=== PATIENT | female | born 2000 | race Caucasian/White ===

== ENCOUNTER 2019-11-29 10:09 | Outpatient (CLI) | payer MEDICAID ==
--- NOTE | 2019-11-29 11:08 | Non Stress Test Report ---
Non Stress Test Datetime Report Generated by CPN: 11/29/2019 11:07 DEMOGRAPHIC Test Number: 1 EGA NST: 39.3 INDICATION Indication for Study (NST) Other: 39.3 weeks repeat NST MONITORING Monitor Explained: Monitor Explained; Test Explained; Patient Verbalized Understanding Time on Monitor: 11/29/2019 10:19 Time off Monitor: 11/29/2019 10:48 NST Duration: 29 NST INTERVENTIONS NST Interventions: PO Hydration Physician Notified NST: Dr. Larsen BABY A: [id number] BABY A Movement : Present Contraction Frequency : Irregular FHR Baseline : 120 Accelerations : 15X15 Decelerations : None Variability : Moderate 6-25bpm NST Review: Meets Criteria for Reactive NST NST Review and Verified By : TMartin,RN NST Results: Reactive NST REPORT Report Trigger: Send Report
== END 2019-11-29 10:58 | disposition home or self-care (01) ==
LOC: LC 10:09
PROVIDERS: ATTEND Student in an Organized Health Care Education/Training Program
DX: O47.1 False labor at or after 37 completed weeks of gestation (principal); Z3A.39 39 weeks gestation of pregnancy

== ENCOUNTER 2019-12-04 01:42 | Outpatient (CLI) | payer MEDICAID ==
[2019-12-04 02:21] LABS: APPEARANCE,URINE SLIGHTLY-CLOUDY; BILIRUBIN,URINE NEGATIVE (NEGATIVE); COLOR,URINE YELLOW; GLUCOSE, URINE NEGATIVE (NEGATIVE); KETONES,URINE NEGATIVE (NEGATIVE); LEUKOCYTE ESTERASE,URINE LARGE (NEGATIVE); NITRITE,URINE NEGATIVE (NEGATIVE); PROTEIN,URINE 30 mg/dL (NEGATIVE); URINE SPECIFIC GRAVITY 1.023; UROBILINOGEN,URINE NEGATIVE mg/dL (<2.0)
[2019-12-04 02:35] LABS: URINE AMPHETAMINES SCREEN NEGATIVE; URINE BARBITURATES SCREEN NEGATIVE; URINE BENZODIAZEPINES SCREEN NEGATIVE; URINE COCAINE SCREEN NEGATIVE; URINE MARIJUANA (THC) SCREEN NEGATIVE; URINE METHADONE SCREEN NEGATIVE; URINE PHENCYCLIDINE SCREEN NEGATIVE
[2019-12-04] MEDS ORDERED: HYDROXYZINE PAMOATE 50 MG CAPSULE PO ONE (03:32)
[2019-12-04] MEDS ORDERED: HYDROXYZINE PAMOATE 50 MG CAPSULE ONE (03:50)
--- NOTE | 2019-12-04 04:09 | Non Stress Test Report ---
Non Stress Test Datetime Report Generated by CPN: 12/04/2019 04:09 DEMOGRAPHIC EGA NST: 40.1 INDICATION Indication for Study (NST) Other: lc VITAL SIGNS Temperature - NST: 96.6 Pulse - NST: 98 RESP - NST: 17 NBPSYS NST: 124 NBPDIA NST: 72 URINE RESULTS Urine Protein, NST: Positive Urine Ketones - NST: Negative Urine Glucose - NST: Negative Urine Blood - NST: Negative MONITORING Monitor Explained: Monitor Explained; Test Explained; Patient Verbalized Understanding Time on Monitor: 12/04/2019 01:54 Time off Monitor: 12/04/2019 02:15 NST Duration: 21 NST INTERVENTIONS NST Interventions: PO Hydration; Reposition Patient Physician Notified NST: Dr Gabriel BABY A: [id number] BABY A Movement : Present Contraction Frequency : 3-6 FHR Baseline : 120 Accelerations : 15X15 Decelerations : None Variability : Moderate 6-25bpm NST Review: Meets Criteria for Reactive NST NST Review and Verified By : Josy Paredes, SRINIVASA NST Results: Reactive NST REPORT Report Trigger: Send Report
[2019-12-04] MEDS ORDERED: TRANEXAMIC ACID INJ/PF 1,000 MG/10 ML SDV IV PRN (19:39)
== END 2019-12-04 04:00 | disposition home or self-care (01) ==
LOC: LC 01:42
PROVIDERS: ATTEND Obstetrics & Gynecology
DX: O47.1 False labor at or after 37 completed weeks of gestation (principal); Z3A.40 40 weeks gestation of pregnancy
CPT/HCPCS: 59025; 81005; 80307; J3490

== ENCOUNTER 2019-12-04 09:39 | Inpatient (IN) | payer MEDICAID ==
[2019-12-04] MEDS ORDERED: OXYTOCIN 10 UNIT/ML VIAL ONE (10:11)
[2019-12-04] MEDS ORDERED: MISOPROSTOL 0.2 MG TABLET ONE (10:11)
[2019-12-04] MEDS ORDERED: OXYTOCIN/0.9 % SODIUM CHLORIDE 30 UNIT/500 ML RTUINJ ONE (10:12)
[2019-12-04] MEDS ORDERED: LIDOCAINE 1% INJ-PF (10 MG/ML) 30 ML SDV ONE (10:12)
[2019-12-04] MEDS ORDERED: PENICILLIN G-K 5 MILLION UNIT VIAL ONE ×2 (10:12→14:08)
[2019-12-04] MEDS ORDERED: PENICILLIN G POTASSIUM 5,000,000 UNIT in DEXTROSE 5%-WATER 100 ML IV ONE (10:15)
[2019-12-04 10:22] LABS: APPEARANCE,URINE CLOUDY; BILIRUBIN,URINE NEGATIVE (NEGATIVE); COLOR,URINE YELLOW; GLUCOSE, URINE NEGATIVE (NEGATIVE); KETONES,URINE 20 mg/dL (NEGATIVE); LEUKOCYTE ESTERASE,URINE MODERATE (NEGATIVE); NITRITE,URINE NEGATIVE (NEGATIVE); PROTEIN,URINE 30 mg/dL (NEGATIVE); URINE SPECIFIC GRAVITY 1.018; UROBILINOGEN,URINE NEGATIVE mg/dL (<2.0)
[2019-12-04] MEDS: RINGERS SOLUTION,LACTATED 1,000 ML IV PRN ×2 (10:25→17:46)
[2019-12-04 10:38] LABS: URINE AMPHETAMINES SCREEN NEGATIVE; URINE BARBITURATES SCREEN NEGATIVE; URINE BENZODIAZEPINES SCREEN NEGATIVE; URINE COCAINE SCREEN NEGATIVE; URINE MARIJUANA (THC) SCREEN NEGATIVE; URINE METHADONE SCREEN NEGATIVE; URINE PHENCYCLIDINE SCREEN NEGATIVE
[2019-12-04 10:54] LABS: ABSOLUTE LYMPHOCYTES (AUTO) 1.4 10^3/uL (0.5-4.7); ABSOLUTE MONOCYTES (AUTO) 0.7 10^3/uL (0.1-1.4); ABSOLUTE NEUT (AUTO) 14.9 10^3/uL (1.7-8.2); BASOPHILS % (AUTO) 0.2 % (0-2); HEMATOCRIT 37.5 % (36.0-47.0); HEMOGLOBIN 12.3 g/dL (12.0-15.5); LYMPHOCYTES % (AUTO) 8.1 % (13-45); MEAN CORPUSCULAR HEMOGLOBIN 28.3 pg (27.0-33.4); MEAN CORPUSCULAR HGB CONC 32.9 g/dL (32.0-36.0); MEAN CORPUSCULAR VOLUME 86 fl (80-97); MONOCYTES % (AUTO) 4.3 % (3-13); PLATELET COUNT 215 10^3/uL (150-450); RED BLOOD COUNT 4.36 10^6/uL (3.72-5.28); SEGMENTED NEUTROPHILS % (AUTO) 87.4 % (42-78); TOTAL CELLS COUNTED % (AUTO) 100 %; WHITE BLOOD COUNT 17.1 10^3/uL (4.0-10.5)
--- NOTE | 2019-12-04 13:19 | Admission Physical ---
Datetime Report Generated by CPN: 12/04/2019 13:18 CURRENT ADMISSION Chief Complaint: Uterine Contractions; Suspected Ruptured Membranes Indication for Induction: Not Applicable Admit Impression : Term, Intrauterine Admit Plan: Admit to Unit; Initiate Labor Protocol ALLERGIES Medication Allergies: No Medication Allergies: No Known Allergies (12/04/2019) Latex: No Latex Allergies Food Allergies: None Environmental Allergies: None OBSTETRICAL HISTORY EDC: 12/03/2019 00:00 : 1 Para: 0 Term: 0 SAB: 0 IAB: 0 Ectopic: 0 Livin Cesareans: 0 VBACs: 0 Multiple Births: 0 Gestational Diabetes: No Rh Sensitization: No Incompetent Cervix: No TY: No Infertility: No ART Treatment: No Uterine Anomaly: No IUGR: No Hx Previous C/S: No Macrosomia: No Hx Loss/Stillborn: No PIH: No Hx : No Placenta Previa/Abruption: No Depression/PP Depression: No PTL/PROM: No Post Hemorrhage: No Current Procedures: Ultrasound; NST Obstetrical History Comments: G1- Current SEE RECORDS Alcohol: No Marijuana : No Cocaine: No Other Illicit Drugs: No Cigarettes: Former Smoker. [id number] Cigarette Frequency: < 5 per day MEDICAL HISTORY Diabetes: No Blood Transfusion: No Pulmonary Disease (Asthma, TB): No Breast Disease: No Hypertension: No Auto Claims Adjuster Surgery: No Heart Disease: No Hosp/Surgery: No Autoimmune Disorder: No Anesthetic Complications: No Kidney Disease: No Abnormal Pap Smear: No Neuro/Epilepsy: No Psychiatric Disorders: No Other Medical Diseases: No Hepatitis/Liver Disease: No Significant Family History: No Varicosities/Phlebitis: No Trauma/Violence : No Thyroid Dysfunction: No INFECTIOUS HISTORY Gonorrhea: No Genital Herpes: No Chlamydia: No Tuberculosis: No Syphilis: No Hepatitis: No HIV/AIDS Exposure: No Rash or Viral Illness: No HPV: No PHYSICAL EXAM General: Normal Neurologic: Normal Heart: Normal Lungs: Normal Abdomen: Normal Extremities: Normal Vital Signs: Reviewed; Within Normal Limits VAGINAL EXAM Contraction Comments: 2-6 MEMBRANES Membranes: Ruptured Amniotic Fluid Color: Clear FETUS A EGA: 40.1 Monitoring: External US FHR Category: Category I Presentation: Vertex Admit Comment: 19yo G1 @ 40w1d into L_D with contractions since last night. Pt was here @ 0300 and was discharged with no cervical change. On return, Pt is now 8cm dilated and SROM @ 0900. Pt is A neg, RI, GBS positive. uncomplicated, transfered in from [facility] @ 19wga. Dr. Rosado is the OB bronc buster today and aware of admission and pt status. First dose of PCN given on admission, pt resting comfortably, plan is delivery after 2nd dose of PCN earlier prn PLANS FOR LABOR AND DELIVERY Labor and Delivery: None Pain Management: Epidural Feeding Preference: Formula Benefit of Breast Feed Discussed: Yes Circumcision: No INFORMED CONSENT Assignment: Daiana Rosado MD Signature: with User ID: Luis A : with User ID: Luis [email or web address]
--- NOTE | 2019-12-04 14:11 | L&D Progress Notes ---
PROGRESS NOTES Datetime Report Generated by CPN: 12/04/2019 14:11 PROGRESS NOTE Impression: Normal Progression of Labor Procedures: Artificial ROM; Sterile Vag Exam Plan: Continue Present Management Informed Consent Obtained: Vaginal Delivery; Risks, Benefits and Alternatives Discussed Vital Signs : Reviewed; Within Normal Limits Comment: S: pt comfortable, breathing with contractions, denies any special requests for time of delivery, no concerns O: VSS, Cat I tracing, contractions and cervix as stated A: IUP @ 40w1d in labor progressing well AROM of forebag-moderate amount of clear fluid P: continue expectant management, anticipate delivery VAGINAL EXAM Contractions: 2-6 LAST VAGINAL EXAM-NURSING Nursing Exam Dilitation: 9.0 Nursing Exam Effacement: 100 Nursing Exam Station: 0 Nursing Exam Contractions: Pt kamryn feeling contraction. MEMBRANES Membranes: Ruptured Amniotic Fluid Color: Clear FETUS A Monitoring: External US FHR Category: Category I Presentation: Vertex SIGNATURE SIGNATURE: [id number] Assignment: aDiana Rosado MD Signature: with User ID: Luis A : with User ID: Luis A
[2019-12-04] MEDS: PENICILLIN G POTASSIUM 2,500,000 UNIT in DEXTROSE 5%-WATER 50 ML IV SCH ×2 (14:16→18:07)
[2019-12-04] MEDS ORDERED: OXYTOCIN/0.9 % SODIUM CHLORIDE 30 UNIT/500 ML RTUINJ IV PRN ×2 (15:18→19:05)
[2019-12-04] MEDS ORDERED: FENTANYL CITRATE INJ/PF 100 MCG/2 ML AMPUL ONE (16:04)
[2019-12-04] MEDS ORDERED: FENTANYL CITRATE INJ/PF 100 MCG/2 ML AMPUL IV ONE (16:12)
[2019-12-04] MEDS ORDERED: EPHEDRINE SULFATE INJ 50 MG/1 ML AMPULE ONE (16:22)
[2019-12-04] MEDS ORDERED: ROPIVACAINE HCL 0.2% INJ/PF (2 MG/ML) 20 ML SDV ONE (16:23)
[2019-12-04] MEDS ORDERED: FENTANYL/BUPIVACAINE/NS/PF 0 MCG/0 ML RTUINJ EPI ONE (16:23)
--- NOTE | 2019-12-04 16:46 | L&D Progress Notes ---
PROGRESS NOTES Datetime Report Generated by CPN: 12/04/2019 16:46 PROGRESS NOTE Impression: Normal Progression of Labor Procedures: Sterile Vag Exam Plan: Continue Present Management; Augmentation Informed Consent Obtained: Vaginal Delivery; Risks, Benefits and Alternatives Discussed Vital Signs : Reviewed; Within Normal Limits Comment: S: breathing with contractions desires epidural at this time, does not want to push without epidural O: vss, cat I tracing, pit @ 6mu/min, cervix with persistant anterior lip, baby in OP presentation A: IUP @ 40w1d in labor, progressing P: continue labor augment at this time, anesthesia not available, fentanyl IV given for pain relief until DELIVERY ENGINEER is available for epidural placement, anticipate delivery VAGINAL EXAM Dilatation: 9-10 Effacement: 100 Station: 0 Contractions: q3 LAST VAGINAL EXAM-NURSING Nursing Exam Dilitation: 9.0 Nursing Exam Effacement: 100 Nursing Exam Station: 1 Nursing Exam Contractions: Pt kamryn feeling contraction. MEMBRANES Membranes: Ruptured Amniotic Fluid Color: Clear FETUS A Monitoring: External US Decelerations: Early FHR Category: Category I Presentation: Vertex SIGNATURE SIGNATURE: [id number] Assignment: Daiana Rosado MD Signature: with User ID: Luis A : with User ID: Luis A
[2019-12-04] MEDS ORDERED: ACETAMINOPHEN WITH CODEINE #3 TABLET PO PRN ×2 (19:05)
[2019-12-04] MEDS ORDERED: DIPHENHYDRAMINE HCL 25 MG CAPSULE PO PRN (19:05)
[2019-12-04] MEDS ORDERED: GLYCERIN/WITCH HAZEL LEAF 1 EACH MED..WIPE TP PRN (19:05)
[2019-12-04] MEDS ORDERED: PSEUDOEPHEDRINE HCL 30 MG TABLET PO PRN (19:05)
[2019-12-04] MEDS ORDERED: PROMETHAZINE HCL 25 MG TABLET PO PRN (19:05)
[2019-12-04] MEDS ORDERED: ACETAMINOPHEN 650 MG SUPP.RECT PR PRN (19:05)
[2019-12-04] MEDS ORDERED: PROMETHAZINE HCL 25 MG SUPP.RECT PR PRN (19:05)
[2019-12-04] MEDS ORDERED: BENZOCAINE/MENTHOL AEROSOL SPRAY 56 ML TOP PRN (19:05)
[2019-12-04] MEDS ORDERED: MEASLES,MUMPS&RUBELLA VACC/PF 0.5 ML VIAL SUBCUT PRN (19:05)
[2019-12-04] MEDS ORDERED: ZOLPIDEM TARTRATE 5 MG TABLET PO PRN (19:05)
[2019-12-04] MEDS ORDERED: MAGNESIUM HYDROXIDE SUSP 30 ML UDCUP PO PRN (19:05)
[2019-12-04] MEDS ORDERED: DIPH/PERTUSS(ACELL)/TETANUS VAC/PF 0.5 ML SYR (>=10YO) IM PRN (19:05)
[2019-12-04] MEDS ORDERED: DIBUCAINE 1% OINTMENT 28 GM TP PRN (19:05)
[2019-12-04] MEDS ORDERED: NA PHOS,M-B/NA PHOS,DI-BA (ADULT) 133 ML ENEMA PR PRN (19:05)
[2019-12-04] MEDS ORDERED: PROMETHAZINE HCL INJ 25 MG/1 ML VIAL IV PRN (19:05)
[2019-12-04] MEDS ORDERED: TRANEXAMIC ACID INJ/PF 1,000 MG/10 ML SDV ONE (19:33)
--- NOTE | 2019-12-04 20:40 | Delivery Summary ---
Del Sum A-C Datetime Report Generated by CPN: 12/04/2019 20:40 DELIVERY PERSONNEL DELIVERY PERSONNEL: [id number] Delivery Doctor:: Daiana Rosado MD Labor and Delivery Nurse:: Jaycee Evans RNmachine steak tenderizer Nurse:: NOAM Sow Nursery Nurse:: Charu Edouard RN Nursery Nurse:: Jolene Acharya RN Button Maker/FLYER BUILDER: Floresita Nayak CNA II Button Maker/FLYER BUILDER: Xi [place] FLYER BUILDER MATERNAL INFORMATION Delivery Anesthesia: Local Medications After Delivery: Pitocin 30 Units in 500ml NS/D5W; Cytotec 1000mcg Per Rectum/Vagina; Other-Please Comment Meds After Delivery Comment: TXA 1,000 mg IV Estimated Blood Loss (ml): 200 Delivery QBL: 300 Maternal Complications: None; Other Complication Details: intermittent care LABOR SUMMARY EDC: 12/03/2019 00:00 No. Babies in Womb: 0 Attempted: No Labor Anesthesia: IV Sedation LABOR INFORMATION Reason for Induction: Not Applicable Onset of Labor: 12/04/2019 09:00 Complete Dilatation: 12/04/2019 16:50 Oxytocin: Augmentation Group B Beta Strep: positive Antibiotics # of Doses: 3 Antibiotics Time of Last Dose: 12/04/2019 18:07 Name of Antibiotic Given: Penicillin Steroids Given: None Reason Steroids Not Administered: Not Applicable MEMBRANES Membranes Rupture Method: Artificial Rupture of Membranes: 12/04/2019 09:00 Length of Rupture (hr): 9.68 Amniotic Fluid Color: Clear Amniotic Fluid Amount: Moderate Amniotic Fluid Odor: None STAGES OF LABOR Stage 1 hr: 7 Stage 1 min: 50 Stage 2 hr: 1 Stage 2 min: 51 Stage 3 hr: 0 Stage 3 min: 4 Total Time in Labor hr: 9 Total Time in Labor min: 45 VAGINAL DELIVERY Episiotomy: None Laceration #1: Vaginal Laceration Extension #1: First Degree Laceration Repair: Yes Laceration Repair Note: 2-0 chromic repair in normal fashion with running locked stitch. Labial tear repaired with 3 interrupted sutures. Sponge Count Correct: N/A; Vaginal Sweep Performed Sharps Count Correct: N/A CSECTION DELIVERY Primary Indication: N/A Secondary Indication: N/A CSection Incidence: N/A Labor: N/A Elective: N/A CSection Incision: N/A BABY A INFORMATION Infant Delivery Date/Time: 12/04/2019 18:41 Method of Delivery: Vaginal Nurse Controlled Delivery: No Born in Route : No : N/A Forceps: N/A Vacuum Extraction: N/A Shoulder Dystocia : No PRESENTATION/POSITION BABY A Presentation: Cephalic Cephalic Presentation: Vertex Vertex Position: Right Occipital Anterior Breech Presentation: N/A PLACENTA INFORMATION BABY A Placenta Delivery Time : 12/04/2019 18:45 Placenta Method of Delivery: Spontaneous Placenta Status: Delivered SCORES BABY A Heart Rate 1 min: >100 bpm Resp Effort 1 min: Good Cry Reflex Irritability 1 min: Cough or Sneeze or Pulls Away Muscle Tone 1 min: Active Motion Color 1 min: Body [place], Extremities Blue SCORE 1 MIN: 9 Heart Rate 5 min: >100 bpm Resp Effort 5 min: Good Cry Reflex Irritability 5 min: Cough or Sneeze or Pulls Away Muscle Tone 5 min: Active Motion Color 5 min: Body [place], Extremities Blue SCORE 5 MIN: 9 INFORMATION BABY A Gestational Age at Delivery: 40.1 Gestational Status: Full Term- 39- 40.6 Weeks Outcome : Liveborn Infant Condition : Stable Infant Sex: Male IDENTIFICATION BABY A Infant Verification Date/Time: 12/04/2019 19:05 ID Band Number: [id number] Mother's Name Verified: Yes Infant RN Verifying Infant: Ayesha Evans, RN Additional Verifying Personnel: Rupali Paredes RN WEIGHT/LENGTH BABY A Birthweight (gm): 3771 Weight (lb): 8 Infant Weight (oz): 5 Infant Length (in): 19.50 Length (cm): 49.53 CORD INFORMATION BABY A No. Cord Vessels: 3 Nuchal Cord : N/A Cord Blood Taken: Yes-For Eval (Mom's Blood Type - or O+) Infant Suction: Mouth; Nose ASSESSMENT BABY A Skin to Skin: Yes BABY B INFORMATION : N/A SIGNATURES Signature: with User ID: [email or web address]
--- NOTE | 2019-12-04 20:40 | Birth Certificate Data ---
Cert Data Datetime Report Generated by CPN: 12/04/2019 20:40 CERTIFICATE DATA 47a. Care: No (11/29/2019 10:03:NOAM Sow) 47b. Date of First Visit: 04/16/2019 00:00 (11/29/2019 10:03:NOAM Sow) 47c. Date of Last Visit: 11/29/2019 00:00 (11/29/2019 10:03:NOAM Sow) 47d. Number of Visits: 9 (11/29/2019 10:03:NOAM Sow) 48a. Number of Prev Live Births: 0 (11/29/2019 10:03:Asa Hernandez RN) 48b. Now Livin (11/29/2019 10:03:Asa Hernadnez RN) 48c. Live Births Now : 0 (11/29/2019 10:03:QS system process) 48e. Losses: 0 (11/29/2019 10:03:Asa Hernandez RN) RISK FACTORS IN THIS 49a. Diabetes: No (11/29/2019 10:03:Asa Hernandez RN) 49b. Hypertension: No (11/29/2019 10:03:Asa Hernandez RN) 49d. Stillborns: No (11/29/2019 10:03:Asa Hernandez RN) 49d. IUGR: No (11/29/2019 10:03:Asa Hernandez RN) 49e. Infertility Treatment: No (11/29/2019 10:03:Asa Hernandez RN) 49f. Previous Cesareans: 0 (11/29/2019 10:03:Asa Hernandez RN) Mother's Height 50b. Height Inches: 67 (12/04/2019 09:52:QS system process) Mother's Weight 51a. Pre- Weight (lbs): 115 (11/29/2019 10:03:Asa Hernandez RN) 51b. Weight at Delivery (lbs): 163 (12/04/2019 09:52:QS system process) 52. Dt Last Normal Menses Began: 02/26/2019 00:00 (11/29/2019 10:03:NOAM Sow) Infections Present/Treated 53a. Gonorrhea: No (11/29/2019 10:03:Asa Hernandez RN) Results this Hospital Visit : Negative (11/29/2019 10:03:NOAM Landry) 53b. Syphilis: No (11/29/2019 10:03:Asa Hernandez RN) 53c. Chlamydia: No (11/29/2019 10:03:Asa Hernandez RN) Results this Hospital Visit: Negative (11/29/2019 10:03:NOAM Landry) 53d. Hepatitis B: No (11/29/2019 10:03:Asa Hernandez RN) Results this Hospital Visit: Negative (11/29/2019 10:03:Asa Hernandez RN) 53e. Hepatitis C: Negative (11/29/2019 10:03:NOAM Landry) 53h. Mother Tested for HBsAG: Yes (11/29/2019 10:03:Asa Hernandez RN) 53i. Date Tested: 07/09/2019 00:00 (11/29/2019 10:03:Talya Valdes [facility]) 53j. Test Result: Negative (11/29/2019 10:03:Asa Hernandez RN) Obstetric Procedures 54a, b, c. Obstetric Procedures: Ultrasound; NST (11/29/2019 10:03:Asa Hernandez RN) Cigarette Smoking 55a. 3 Months Before Preg - Ci (11/29/2019 10:03:Asa Hernandez RN) 55b. 1st Trimester of Preg- Ci (11/29/2019 10:03:Asa Hernandez RN) 55c. 2nd Trimester of Preg- Ci (11/29/2019 10:03:Asa Hernandez RN) 55d. 3rd Trimester of Preg- Ci (11/29/2019 10:03:Asa Hernandez RN) Onset of Labor 56a. PROM >12 Hrs: 9.68 (11/29/2019 10:03:QS system process) 56b. Precipitous Labor <3 Hrs: 9 (11/29/2019 10:03:QS system process) 56c. Prolonged Labor > 20 Hrs: 9 (11/29/2019 10:03:QS system process) 57a. Induction of Labor: Augmentation (11/29/2019 10:03:Jaycee Evans RN) 57c. Non-Vertex Presentation A: Vertex (11/29/2019 10:03:Jaycee Evans RN) 57d. Steroids - Lung Mat: None (11/29/2019 10:03:Jaycee Evans RN) 57d. Steroids - Lung Mat: Not Applicable (11/29/2019 10:03:Jaycee Evans RN) 57e. Antibiotics During Labor: 12/04/2019 18:07 (11/29/2019 10:03:Jaycee Evans RN) 57f. Mat [place] or Temp >100.4: 98.5 (11/29/2019 10:03:Lottie Paredes RN) 57g. Moderate/Heavy Meconium: Clear (12/04/2019 14:03:Maeve Ulrich RN) 57h. Intolerance of Labor: N/A (11/29/2019 10:03:Jaycee Evans RN) : N/A (11/29/2019 10:03:Jaycee Evans RN) 57i. Epidural/Spinal Anesthesia: IV Sedation (11/29/2019 10:03:Jaycee Evans RN) Method of Delivery 58a. Forceps - Unsuccessful A: N/A (11/29/2019 10:03:Jaycee Evans RN) 58b. Vacuum - Unsuccessful A: N/A (11/29/2019 10:03:Jaycee Evans RN) 58c. Presentation at 58c. Presentation at - A : Vertex (11/29/2019 10:03:Jaycee Evans RN) 58c. Presentation at - A : N/A (11/29/2019 10:03:Jaycee Evans RN) 58c. Presentation at - A : Cephalic (11/29/2019 10:03:Jaycee Evans RN) Final Route and Method of Del 58d. Baby A Route/Delivery: Vaginal (11/29/2019 10:03:Jolene Acharya RN) 58e. Trial of Labor Attempted: No (11/29/2019 10:03:Jaycee Evans RN) 58e. Trial of Labor Attempted A: N/A (11/29/2019 10:03:Jaycee Evans RN) 58e. Trial of Labor Attempted B: N/A (11/29/2019 10:03:Jaycee Evans RN) Maternal Morbidity 59b. 3rd or 4th Degree Lacs: Vaginal (11/29/2019 10:03:Jaycee Evans RN) 59b. 3rd or 4th Degree Lacs: First Degree (11/29/2019 10:03:Jaycee Evans RN) Birthweight Baby A: 3771 (11/29/2019 10:03:Lottie Paredes RN) 60a. Pounds : 8 (11/29/2019 10:03:QS system process) 60b. Ounces: 5 (11/29/2019 10:03:QS system process) 61. GA at Delivery Baby A: 40.1 (11/29/2019 10:03:Jaycee Evans RN) : Full Term- 39- 40.6 Weeks (11/29/2019 10:03:QS system process) 62a. 5 Minute Baby A: 9 (11/29/2019 10:03:QS system process)
[2019-12-04] MEDS ORDERED: AMPICILLIN SOD/SULBACTAM 3 GM VIAL IV SCH (21:30)
[2019-12-04] MEDS: IBUPROFEN 800 MG TABLET PO SCH (21:52)
[2019-12-04] MEDS: FAMOTIDINE 20 MG TABLET PO SCH (21:53)
[2019-12-04] MEDS ORDERED: AMPICILLIN SOD/SULBACTAM 3 GM VIAL ONE (22:28)
[2019-12-04] MEDS: AMPICILLIN SODIUM/SULBACTAM NA 3 GM in NORMAL SALINE 100 ML IV SCH (22:47)
[2019-12-05] MEDS: AMPICILLIN SODIUM/SULBACTAM NA 3 GM in NORMAL SALINE 100 ML IV SCH ×3 (05:30→14:24)
[2019-12-05] MEDS: IBUPROFEN 800 MG TABLET PO SCH ×3 (05:31→21:09)
[2019-12-05 06:50] LABS: HEMATOCRIT 31.7 % (36.0-47.0); HEMOGLOBIN 10.6 g/dL (12.0-15.5); MEAN CORPUSCULAR HEMOGLOBIN 28.6 pg (27.0-33.4); MEAN CORPUSCULAR HGB CONC 33.4 g/dL (32.0-36.0); MEAN CORPUSCULAR VOLUME 86 fl (80-97); PLATELET COUNT 202 10^3/uL (150-450); RED BLOOD COUNT 3.71 10^6/uL (3.72-5.28); RED CELL DISTRIBUTION WIDTH 13.7 % (11.5-14.0); WHITE BLOOD COUNT 18.9 10^3/uL (4.0-10.5)
[2019-12-05] MEDS: PRENATAL VITAMIN W DHA CAPSULE PO SCH (09:55)
[2019-12-05] MEDS: FAMOTIDINE 20 MG TABLET PO SCH ×2 (09:55→21:09)
[2019-12-05] MEDS: SENNOSIDES/DOCUSATE 8.6-50 MG 1 EACH TABLET PO SCH (09:55)
[2019-12-05] MEDS: DOCUSATE SODIUM 100 MG CAPSULE PO SCH ×2 (09:55→17:25)
[2019-12-05] MEDS: FERROUS SULFATE 325 MG TABLET PO SCH ×2 (09:55→17:25)
--- NOTE | 2019-12-05 09:57 | PDOC PROGRESS REPORT ---
Subjective-OB Progress Note for:: 12/05/19 Subjective: Doing well, no c/o, holding baby, bottle feeding, voiding Physical Exam (OB) Vital Signs: Temp Pulse Resp BP Pulse Ox 98.0 F 110 H 16 116/80 99 12/05/19 08:00 12/05/19 08:00 12/05/19 08:00 12/05/19 08:00 12/05/19 08:00 Intake & Output 12/04/19 12/05/19 12/06/19 06:59 06:59 06:59 Intake Total 1019 Balance 1019 Weight 74.1 kg - PIH/Pre-Eclampsia Clonus: Negative Headache: Absent Epigastric Pain: No Visual Changes: No - Maternal Morbidity 59. Maternal Morbidity (serious complications experinced by the mother associated with labor and delivery: None of the above - Lochia Lochia Amount: Small 10-25 ml Lochia Color: Rubra/Red - Abdomen Description: Soft, Flat Hernia Present: No Fundal Description: Firm, Midline Fundal Height: u/u - u/2 Objective-Diagnostic Laboratory: 12/05/19 06:30 12/04/19 12/04/19 12/04/19 10:05 10:40 10:40 WBC 17.1 H RBC 4.36 Hgb 12.3 Hct 37.5 MCV 86 MCH 28.3 MCHC 32.9 RDW 14.0 Plt Count 215 Seg Neutrophils % 87.4 H Urine Color YELLOW Urine Appearance CLOUDY Urine pH 6.0 Ur Specific [place] 1.018 Urine Protein 30 H Urine Glucose (UA) NEGATIVE Urine Ketones 20 H Urine Blood LARGE H Urine Nitrite NEGATIVE Ur Leukocyte Esterase MODERATE H Urine WBC (Auto) 71 Urine RBC (Auto) 26 Blood Type A NEGATIVE Antibody Screen POSITIVE 12/05/19 12/05/19 06:30 06:30 WBC 18.9 H RBC 3.71 L Hgb 10.6 L Hct 31.7 L MCV 86 MCH 28.6 MCHC 33.4 RDW 13.7 Plt Count 202 Seg Neutrophils % Urine Color Urine Appearance Urine pH Ur Specific [place] Urine Protein Urine Glucose (UA) Urine Ketones Urine Blood Urine Nitrite Ur Leukocyte Esterase Urine WBC (Auto) Urine RBC (Auto) Blood Type A NEGATIVE Antibody Screen Assessment and Plan(PN) - Assessment and Plan (1) GBS (group B Streptococcus carrier), +RV culture, currently Is this a current diagnosis for this admission?: Yes (2) Rh negative status during Qualifiers: Trimester: first trimester Qualified Code(s): O26.891 - Other specified related conditions, first trimester; Z67.91 - Unspecified blood type, Rh negative Is this a current diagnosis for this admission?: Yes (3) labial and vaginal laceration Is this a current diagnosis for this admission?: Yes (4) Vaginal delivery Is this a current diagnosis for this admission?: Yes - Time Spent with Patient Time with patient: Less than 15 minutes Medications reviewed and adjusted accordingly: Yes - Disposition Anticipated Discharge Disposition: Home, Self Care Anticipated Discharge Timeframe: within 24 hours
[2019-12-06] MEDS: IBUPROFEN 800 MG TABLET PO SCH (06:19)
[2019-12-06] MEDS: FAMOTIDINE 20 MG TABLET PO SCH (10:16)
[2019-12-06] MEDS: PRENATAL VITAMIN W DHA CAPSULE PO SCH (10:16)
[2019-12-06] MEDS: FERROUS SULFATE 325 MG TABLET PO SCH (10:16)
[2019-12-06] MEDS: SENNOSIDES/DOCUSATE 8.6-50 MG 1 EACH TABLET PO SCH (10:16)
[2019-12-06] MEDS: DOCUSATE SODIUM 100 MG CAPSULE PO SCH (10:16)
[2019-12-06 10:44] LABS: ABSOLUTE EOSINOPHILS # (AUTO) 0.1 10^3/uL (0.0-0.6); ABSOLUTE LYMPHOCYTES (AUTO) 2.5 10^3/uL (0.5-4.7); ABSOLUTE MONOCYTES (AUTO) 0.9 10^3/uL (0.1-1.4); BASOPHILS % (AUTO) 0.4 % (0-2); EOSINOPHILS % (AUTO) 0.6 % (0-6); LYMPHOCYTES % (AUTO) 19.8 % (13-45); MEAN CORPUSCULAR HEMOGLOBIN 29.1 pg (27.0-33.4); MEAN CORPUSCULAR HGB CONC 34.3 g/dL (32.0-36.0); MEAN CORPUSCULAR VOLUME 85 fl (80-97); MONOCYTES % (AUTO) 7.5 % (3-13); PLATELET COUNT 222 10^3/uL (150-450); RED BLOOD COUNT 3.77 10^6/uL (3.72-5.28); SEGMENTED NEUTROPHILS % (AUTO) 71.7 % (42-78); TOTAL CELLS COUNTED % (AUTO) 100 %; WHITE BLOOD COUNT 12.5 10^3/uL (4.0-10.5)
--- NOTE | 2019-12-06 12:29 | PDOC DISCHARGE SUMMARY ---
Impression - Admit/DC Date/PCP Admission Date/Primary Care Provider: 12/04/19 10:13 ÓSCAR ROBISON MD Discharge Date: 12/06/19 - Discharge Diagnosis (1) GBS (group B Streptococcus carrier), +RV culture, currently Is this a current diagnosis for this admission?: Yes (2) Rh negative status during Is this a current diagnosis for this admission?: Yes (3) Vaginal delivery Is this a current diagnosis for this admission?: Yes (4) labial and vaginal laceration Is this a current diagnosis for this admission?: Yes - Additional Information Discharge Diet: Regular Discharge Activity: Balance Activity w/Rest, Pelvic Rest Referrals: ÓSCAR ROBISON MD [Primary Care Provider] - Prescriptions: Ibuprofen [Motrin 800 mg Tablet] 800 mg PO Q8PM #60 tablet Home Medications: Vit No.130/Iron/Folic [ Tablet] 1 each PO DAILY 11/29/19 Ibuprofen [Motrin 800 mg Tablet] 800 mg PO Q8PM #60 tablet 12/06/19 Hospital Course 59. Maternal Morbidity (serious complications experinced by the mother associated with labor and delivery: None of the above Results Laboratory Results: WBC 12.5 10^3/uL (4.0-10.5) H 12/06/19 10:29 RBC 3.77 10^6/uL (3.72-5.28) 12/06/19 10:29 Hgb 11.0 g/dL (12.0-15.5) L 12/06/19 10:29 Hct 32.0 % (36.0-47.0) L 12/06/19 10:29 MCV 85 fl (80-97) 12/06/19 10:29 MCH 29.1 pg (27.0-33.4) 12/06/19 10:29 MCHC 34.3 g/dL (32.0-36.0) 12/06/19 10:29 RDW 14.0 % (11.5-14.0) 12/06/19 10:29 Plt Count 222 10^3/uL (150-450) 12/06/19 10:29 Lymph % (Auto) 19.8 % (13-45) 12/06/19 10:29 Murray % (Auto) 7.5 % (3-13) 12/06/19 10:29 Eos % (Auto) 0.6 % (0-6) 12/06/19 10:29 Baso % (Auto) 0.4 % (0-2) 12/06/19 10:29 Absolute Neuts (auto) 9.0 10^3/uL (1.7-8.2) H 12/06/19 10:29 Absolute Lymphs (auto) 2.5 10^3/uL (0.5-4.7) 12/06/19 10:29 Absolute Monos (auto) 0.9 10^3/uL (0.1-1.4) 12/06/19 10: Absolute Eos (auto) 0.1 10^3/uL (0.0-0.6) 12/06/19 10: Absolute Basos (auto) 0.0 10^3/uL (0.0-0.2) 12/06/19 10: Seg Neutrophils % 71.7 % (42-78) 12/06/19 10:29 Urine Color YELLOW 12/04/19 10:05 Urine Appearance CLOUDY 12/04/19 10:05 Urine pH 6.0 (5.0-9.0) 12/04/19 10:05 Ur Specific [place] 1.018 12/04/19 10:05 Urine Protein 30 mg/dL (NEGATIVE) H 12/04/19 10:05 Urine Glucose (UA) NEGATIVE mg/dL (NEGATIVE) 12/04/19 10:05 Urine Ketones 20 mg/dL (NEGATIVE) H 12/04/19 10:05 Urine Blood LARGE (NEGATIVE) H 12/04/19 10:05 Urine Nitrite NEGATIVE (NEGATIVE) 12/04/19 10:05 Urine Bilirubin NEGATIVE (NEGATIVE) 12/04/19 10:05 Urine Urobilinogen NEGATIVE mg/dL (<2.0) 12/04/19 10:05 Ur Leukocyte Esterase MODERATE (NEGATIVE) H 12/04/19 10:05 Urine WBC (Auto) 71 /HPF 12/04/19 10:05 Urine RBC (Auto) 26 /HPF 12/04/19 10:05 Urine Bacteria (Auto) TRACE /HPF 12/04/19 10:05 Squamous Epi Cells Auto 10 /HPF 12/04/19 10:05 Urine Mucus (Auto) MOD /LPF 12/04/19 10:05 Urine Ascorbic Acid NEGATIVE (NEGATIVE) 12/04/19 10:05 Membranes Rupture POSITIVE (NEGATIVE) H 12/04/19 10:05 Urine Opiates Screen NEGATIVE 12/04/19 10:05 Urine Methadone Screen NEGATIVE 12/04/19 10:05 Ur Barbiturates Screen NEGATIVE 12/04/19 10:05 Ur Phencyclidine Scrn NEGATIVE 12/04/19 10:05 Ur Amphetamines Screen NEGATIVE 12/04/19 10:05 U Benzodiazepines Scrn NEGATIVE 12/04/19 10:05 Urine Cocaine Screen NEGATIVE 12/04/19 10:05 U Marijuana (THC) Screen NEGATIVE 12/04/19 10:05 RPR NONREACTIVE (NONREACTIVE) 12/04/19 10:40 Blood Type A NEGATIVE 12/05/19 06:30 Antibody Screen POSITIVE 12/04/19 10:40 Antibody Identification RHOGAM INDUCED ANTI-D 12/04/19 10:40 Screen NEGATIVE 12/05/19 06:30 Plan Plan of Treatment: follow up in 4 weeks at [facility] for post check
[2019-12-06 12:54] VITALS: BP 116/80
== END 2019-12-06 13:24 | disposition home or self-care (01) | DRG 807 ==
LOC: LC 09:39 → LR 10:13 → 2S 20:50
PROVIDERS: ADMIT Obstetrics & Gynecology; ATTEND Obstetrics & Gynecology
PROC: 10E0XZZ Delivery of Products of Conception, External Approach (ICD-10-PCS; principal; 2019-12-04)
PROC: 0HQ9XZZ Repair Perineum Skin, External Approach (ICD-10-PCS; 2019-12-04)
PROC: 10907ZC Drainage of Amniotic Fluid, Therapeutic from Products of Conception, Via Natural or Artificial Opening (ICD-10-PCS; 2019-12-04)
PROC: 3E0234Z Introduction of Serum, Toxoid and Vaccine into Muscle, Percutaneous Approach (ICD-10-PCS; 2019-12-05)
DX: O99.824 Streptococcus B carrier state complicating childbirth (principal); Z37.0 Single live birth; O26.893 Other specified pregnancy related conditions, third trimester; Z67.11 Type A blood, Rh negative; Z11.59 Encounter for screening for other viral diseases; O70.0 First degree perineal laceration during delivery; Z87.891 Personal history of nicotine dependence; Z3A.40 40 weeks gestation of pregnancy
CPT/HCPCS: 36415; 80307; 81001; 84112; 85025; 85027; 85461; 86592; 86850; 86870; 86900; 86901; 87086; J0295; J2540; J2590; J2790; J2795; J3010; J3490; J7050; J7060